=== PATIENT | male | born 1975 | race Caucasian/White ===

== ENCOUNTER 2017-11-25 22:05 | Inpatient (IN) | payer OTHER ==
[~2017-11-25] VITALS: Ht 185.4 cm; Wt 98.4 kg
[~2017-11-25 22:05] MED LIST: DESYREL 150 MG150 MG PO; ELAVIL25 MG PO; MORPHINE SULFAT15 MG PO; OXYCONTIN15 MG PO; PERCOCET 10/1 TABLET PO; VALIUM5 MG PO
[2017-11-26 08:55] VITALS: BP 130/76
[2017-11-26 20:42] VITALS: BP 175/86
[2017-11-27 01:15] VITALS: BP 181/85
[2017-11-27 05:02] VITALS: BP 176/84
[2017-11-27 08:12] VITALS: BP 160/91
[2017-11-27 12:11] VITALS: BP 180/80
[2017-11-27 16:09] VITALS: BP 160/89
== END 2017-11-27 18:45 | disposition home or self-care (01) | DRG 460 ==
LOC: EDBD → ENRESERV 22:05 → 2SOUTH 11-26 08:15 → ENRESERV 11-26 15:20 → 2SOUTH 11-26 15:39 → 3EAST 11-26 17:10
DX: M48.062 Spinal stenosis, lumbar region with neurogenic claudication (principal); M51.16 Intervertebral disc disorders with radiculopathy, lumbar region; M41.9 Scoliosis, unspecified; F17.210 Nicotine dependence, cigarettes, uncomplicated; Z79.891 Long term (current) use of opiate analgesic
CPT/HCPCS: 72100; 76000; 86850; 86900; 86901; J0131; J0690; J1100; J1170; J1885; J2250; J2405; J2930; J3010; J3480; S0020